=== PATIENT | male | born 1995 | race Caucasian/White ===

== ENCOUNTER 2024-04-19 19:47 | Emergency (ER) | payer SELFPAY ==
--- NOTE | 2024-04-19 19:48 | XRR_ITS ---
PROCEDURE INFORMATION: Exam: XR Chest Exam date and time: 04/19/2024 8:05 PM Age: 28 years old Clinical indication: Chest pressure; Patient HX: C/O chest pain; Additional info: Cp TECHNIQUE: Imaging protocol: Radiologic exam of the chest. Views: 1 view. COMPARISON: No relevant prior studies available. FINDINGS: Lungs: Unremarkable. No consolidation. Pleural spaces: Unremarkable. No pleural effusion. No pneumothorax. Heart/Mediastinum: Unremarkable. No cardiomegaly. Bones/joints: Unremarkable. XR/XR chest 1V portable [id number] IMPRESSION: No acute findings.
--- NOTE | 2024-04-19 19:48 | ECG_ITS ---
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 Measurements Intervals [place] Rate: 97 P: 48 MA: 154 QRS: -11 QRSD: 104 T: 55 QT: 325 QTc: 414 Interpretive Statements SINUS RHYTHM WITH SINUS ARRHYTHMIA INCOMPLETE RIGHT BUNDLE BRANCH BLOCK [90+ ms QRS DURATION, TERMINAL R IN V1/V2, 40+ ms S IN I/aVL/V4/V5/V6] POSSIBLE ANTERIOR MYOCARDIAL INFARCTION , OF INDETERMINATE AGE [30 ms Q WAVE IN V3/V4, OR R < 0.2 mV IN V4] No previous ECG available for comparison Electronically Signed On 04-21-2024 00:14:13 CDT by Naif Barlow M.D. [email or web address]
--- NOTE | 2024-04-19 20:01 | ED_ITS ---
HPI - Chest Pain 2 General: Chief Complaint: Chest Pain Stated Complaint: chest pain Time Seen by Provider: 04/19/24 19:49 Source: patient and EMS Mode of arrival: EMS Limitations: no limitations History of Present Illness: 28-year-old male who is here from skilled nursing [facility] states he has been having sharp chest pains over the last 2 days he states the pain is worse with inspiration states it is very sharp in nature he denies any cough denies any fever denies any vomiting or diarrhea. Associated symptoms: Deny abdominal pain, dyspnea, fever(s), nausea or vomiting Review of Systems 2 Const: Denies: fever(s), chills, body aches or change in appetite ENMT: Denies: throat pain or dental pain Card: Reports: chest pain Resp: Denies: dyspnea GI: Denies: abdominal pain, nausea, vomiting or diarrhea Musc: Denies: neck pain or back pain Skin/Breast: Denies: rash Neuro: Denies: headache(s) Physical Exam 2 Const: COMMON NORMALS: no acute distress, patient oriented x3 and healthy appearing HENMT: COMMON NORMALS: normocephalic and atraumatic HEAD & SCALP: n ormocephalic and atraumatic Neck/C-Spine: COMMON NORMALS: full ROM and supple Chest: COMMONS NORMALS: normal inspection of the chest and normal palpation of entire chest wall Resp: COMMON NORMALS: normal respiratory effort, No retractions, No use of accessory muscles and clear to auscultation bilaterally AUSCULTATION: clear to auscultation bilaterally Cardio: COMMON NORMALS: regular rate, regular rhythm and No murmurs present (Cardio) RATE: regular rate RHYTHM: regular rhythm Extremity: COMMON NORMALS: normal to inspection and full ROM Neuro: COMMON NORMALS: patient oriented x3, moves all extremities and no focal motor deficits Psych: COMMON NORMALS: mental status grossly normal, Normal thought process present and cooperative THOUGHT PROCESS: Normal thought process present Skin: COMMON NORMALS: no rashes or lesions noted and no wounds GENERAL SKIN EXAM: no rashes or lesions noted Course 2 Vital Signs: Vital signs: Vital Signs Temperature 98.7 F 04/19/24 20:09 Pulse Rate 84 04/19/24 20:09 Respiratory Rate 22 H 04/19/24 20:09 Blood Pressure 155/85 04/19/24 20:09 Pulse Oximetry 96 04/19/24 20:09 Oxygen Delivery Me thod Room Air 04/19/24 20:09 MDM - Chest Pain Medical Decision Making Patient presents here with chest pain is atypical in nature likely pleuritic D- dimer here is negative no signs of PE no signs of ACS no signs of dissection he stable for discharge Medical Records I reviewed the patient's medical records. Lab Data I reviewed the patient's lab results. 04/19/24 20:12 04/19/24 20:12 Laboratory Results WBC 10.41 10^3/uL (3.29-11.43) 04/19/24 20:12 RBC 5.44 10^6/uL (3.85-5.65) 04/19/24 20:12 Hgb 14.90 g/dL (11.27-16.99) 04/19/24 20:12 Hct 45.3 % (37-53) 04/19/24 20:12 MCV 83.3 fl (82-101) 04/19/24 20:12 MCH 27.4 pg (27-33) 04/19/24 20:12 MCHC 32.9 g/dL (30-55) 04/19/24 20:12 RDW 13.0 % (12.1-15.1) 04/19/24 20:12 Plt Count 225 10^3/cmm (157-399) 04/19/24 20:12 MPV 12.7 fL (7.4-10.4) H 04/19/24 20:12 Neut % (Auto) 62.4 % 04/19/24 20:12 Lymph % (Auto) 27.9 % 04/19/24 20:12 [place] % (Auto) 5.6 % 04/19/24 20:12 Eos % (Auto) 3.7 % 04/19/24 20:12 Baso % (Auto) 0.3 % 04/19/24 20:12 Neut # (Auto) 6.51 10^3/uL (1.8-7.7) 04/19/24 20:12 Lymph # (Auto) 2.9 10^3/uL (0.8-4.8) 04/19/24 20:12 [place] # (Auto) 0.6 10^3/uL (0.2-0.9) 04/19/24 20:12 Eos # (Auto) 0.4 10^3/uL (0.0-0.8) 04/19/24 20:12 Baso # (Auto) 0.0 10^3/uL (0.0-0.1) 04/19/24 20:12 Nucleated RBC % (auto) 0 % 04/19/24 20:12 Nucleated RBCs # 0.0 /100WBC 04/19/24 20:12 D-Dimer 0.38 ug/mLFEU (0-0.59) 04/19/24 20:12 Sodium 136 mmol/L (136-145) 04/19/24 20:12 Potassium 3.8 mmol/L (3.5-5.1) 04/19/24 20:12 Chloride 98 mmol/L (98-107) 04/19/24 20:12 Carbon Dioxide 28 mmol/L (22-29) 04/19/24 20:12 Anion Gap 13.8 (5-19) 04/19/24 20:12 BUN 12 mg/dL (6-20) 04/19/24 20:12 Creatinine 0.8 mg/dL (0.7-1.2) 04/19/24 20:12 GFR Calculation 116.9 mL/min (90-130) 04/19/24 20:12 Glucose 115 mg/dL (65-115) 04/19/24 20:12 Calculated Osmolality 283 mOsm/kg (285-295) L 04/19/24 20:12 Calcium 9.5 mg/dL (8.5-10.5) 04/19/24 20:12 Total Bilirubin 0.3 mg/dL (0.15-1.2) 04/19/24 20:12 AST 16 U/L (0-40) 04/19/24 20:12 ALT 18 U/L (0-41) 04/19/24 20:12 Alkaline Phosphatase 78 U/L (40-130) 04/19/24 20:12 Troponin T Baseline < 6 ng/L (0-15) 04/19/24 20:12 Total Protein 7.2 g/dL (6.6-8.7) 04/19/24 20:12 Albumin 4.7 g/dL (3.5-5.2) 04/19/24 20:12 Globulin 2.5 g/dL (1.3-4.6) 04/19/24 20:12 All radiology interpretation(s) finalized by discharge EKG Data EKG 1: I personally reviewed and interpreted this EKG as follows: EKG interpretation date: 04/19/24 EKG interpretation time: 19:53 Interpretation: nsr hr [address] elevation qrs 104 qtc 380 Discharge Plan Discharge Patient Disposition: Home Clinical Impression: Chest pain Condition: Stable Discharge Orders: Discharge ED (Routine); Ordered 04/19/24 Ordered By: Torey Dumont Discharge Diet: Advance as tolerated Discharge Activity: Resume usual activity Patient Instructions: Chest Pain (ED) Coding Level of Care Code ED Django Developer for Arpita Walker
[2024-04-19 20:06] VITALS: BMI 23.7
[2024-04-19 20:09] VITALS: BP 155/85; PULSE 84; RESP 22; TEMP 37.1; O2SAT 96
[2024-04-19] MEDS: ketorolac 30 mg/mL INJ IVP (20:18)
[2024-04-19 20:22] LABS: Basophils % 0.3 %; Eosinophils # 0.4 10^3/uL (0.0-0.8); Eosinophils % 3.7 %; Hematocrit 45.3 % (37-53); Lymphocytes # 2.9 10^3/uL (0.8-4.8); Lymphocytes % 27.9 %; Mean Corpuscular HGB Conc 32.9 g/dL (30-55); Mean Corpuscular Hemoglobin 27.4 pg (27-33); Mean Corpuscular Volume 83.3 fl (82-101); Mean Platelet Volume 12.7 fL (7.4-10.4); Monocytes # 0.6 10^3/uL (0.2-0.9); Monocytes % 5.6 %; Neutrophils # 6.51 10^3/uL (1.8-7.7); Neutrophils % 62.4 %; Nucleated Red Blood Cells % 0 %; Platelet Count 225 10^3/cmm (157-399); Red Blood Count 5.44 10^6/uL (3.85-5.65); White Blood Count 10.41 10^3/uL (3.29-11.43)
[2024-04-19 20:30] LABS: D Dimer 0.38 ug/mLFEU (0-0.59)
[2024-04-19 20:51] LABS: Troponin(5th) Baseline < 6 ng/L (0-15)
[2024-04-19 21:00] LABS: Alanine Aminotransferase 18 U/L (0-41); Albumin Level 4.7 g/dL (3.5-5.2); Alkaline Phosphatase 78 U/L (40-130); Anion Gap 13.8 (5-19); Aspartate Amino Transferase 16 U/L (0-40); Blood Urea Nitrogen 12 mg/dL (6-20); Calcium 9.5 mg/dL (8.5-10.5); Carbon Dioxide 28 mmol/L (22-29); Chloride 98 mmol/L (98-107); Globulin 2.5 g/dL (1.3-4.6); Glomerular Filtration Rate 116.9 mL/min (90-130); Glucose 115 mg/dL (65-115); Osmolality Calculated 283 mOsm/kg (285-295); Potassium 3.8 mmol/L (3.5-5.1); Sodium 136 mmol/L (136-145); Total Bilirubin 0.3 mg/dL (0.15-1.2); Total Protein 7.2 g/dL (6.6-8.7)
[2024-04-19 21:14] VITALS: BP 132/73; PULSE 87; O2SAT 99
== END 2024-04-19 21:16 | disposition home or self-care (01) ==
PROVIDERS: Emergency Provider Emergency Medicine
DX: R07.9 Chest pain, unspecified (principal)
CPT/HCPCS: 36415; 71045; 80053; 84484; 85025; 85378; 93005; 96374; 99285; J1885

== ENCOUNTER 2024-04-20 19:20 | Emergency (ER) | payer SELFPAY ==
[2024-04-20 19:22] VITALS: BP 159/109; PULSE 103; RESP 18; TEMP 36.6; O2SAT 96; BMI 27.8
[2024-04-20 20:00] LABS: Basophils % 0.3 %; Eosinophils # 0.3 10^3/uL (0.0-0.8); Hematocrit 44.6 % (37-53); Lymphocytes # 2.1 10^3/uL (0.8-4.8); Lymphocytes % 24.2 %; Mean Corpuscular HGB Conc 32.7 g/dL (30-55); Mean Corpuscular Hemoglobin 27.4 pg (27-33); Mean Corpuscular Volume 83.7 fl (82-101); Mean Platelet Volume 12.8 fL (7.4-10.4); Monocytes # 0.5 10^3/uL (0.2-0.9); Neutrophils # 5.82 10^3/uL (1.8-7.7); Neutrophils % 66.3 %; Nucleated Red Blood Cells % 0 %; Platelet Count 214 10^3/cmm (157-399); Red Blood Count 5.33 10^6/uL (3.85-5.65); Red Cell Distribution Width 12.9 % (12.1-15.1); White Blood Count 8.79 10^3/uL (3.29-11.43)
[2024-04-20] MEDS: haloperidol inj 5 mg/mL INJ 1 mL IVP (20:19)
[2024-04-20] MEDS: sodium chloride 0.9% 500 ML IV (20:19)
--- NOTE | 2024-04-20 20:19 | W.ED.GENADLT ---
HPI - General Adult General: Chief complaint: General Medical Stated complaint: SHAKING Time Seen by Provider: 04/20/24 19:23 History of Present Illness: 28-year-old incarcerated male here for the second time in 2 days. He complains of uncontrollable shaking, started sometime around his dinnertime this evening. He is awake, and able to talk. He is not had this happen before. No vomiting, no diarrhea. No fever. Related Data Allergies Allergy/AdvReac Type Severity Reaction Status Date / Time No Known Allergies Allergy Verified 04/20/24 19:30 Physical Exam Const: COMMON NORMALS: no acute distress GENERAL APPEARANCE: cooperative; not ill appearing and not frail appearing HENMT: COMMON NORMALS: normocephalic, atraumatic and Normal external nose present HEAD & SCALP: normocephalic and atraumatic FACE & SINUS: normal facial exam and face symmetric NOSE: Normal external nose present Eye: COMMON NORMALS: Equal, round and reactive pupils present and EOMs intact bilaterally PUPIL: Yes Equal, round and reactive pupils present Neck/C-Spine: GENERAL: Yes trachea midline Chest: CHEST: Yes Symmetrical chest wall rise Resp: COMMON NORMALS: normal respiratory effort, No retractions, No use of accessory muscles and clear to auscultation bilaterally AUSCULTATION: clear to auscultation bilaterally Cardio: COMMON NORMALS: regular rate and regular rhythm RATE: regular rate RHYTHM: regular rhythm GI: COMMON NORMALS: Normal to inspection, nondistended, normoactive bowel sounds present Extremity: COMMON NORMALS: no pedal edema Neuro: JOSÉ MIGUEL COMA SCALE: document GCS findings José Miguel coma scale eye opening: To sound José Miguel coma scale verbal response: Orientated José Miguel coma scale motor response: Obey commands José Miguel coma scale total score: 14 SENSORY EXAM: Yes extremities (intact) Psych: COMMON NORMALS: speech normal SPEECH: Yes normal speech Skin: COMMON NORMALS: no rashes or lesions noted GENERAL SKIN EXAM: no rashes or lesions noted Course Vital Signs: Vital signs: Vital Signs Temperature 97.9 F 04/20/24 19:22 Pulse Rate 78 04/20/24 21:03 Respiratory Rate 18 04/20/24 19:22 Blood Pressure 138/78 04/20/24 21:03 Pulse Oximetry 100 04/20/24 21:03 Oxygen Delivery Me thod Room Air 04/20/24 19:22 [facility] - General Adult Medical Decision Making Shaking is resolved after IV Haldol. He is resting comfortably. Vitals are normal. CBC BMP liver enzymes are all normal. Magnesium and phosphorus are normal as well. CK is 75. This does not appear to be seizure activity. May be stress related. He is given IV fluid. He will be allowed discharge This is in no way a seizure disorder. The patient is fully conscious and awake. He is exhibiting muscle fasciculations/spasms that are somewhat rhythmic, likely related to stress versus dehydration versus potential conversion disorder. Lab Data 04/20/24 19:54 04/20/24 19:54 Laboratory Results WBC 8.79 10^3/uL (3.29-11.43) 04/20/24 19:54 RBC 5.33 10^6/uL (3.85-5.65) 04/20/24 19:54 Hgb 14.60 g/dL (11.27-16.99) 04/20/24 19:54 Hct 44.6 % (37-53) 04/20/24 19:54 MCV 83.7 fl (82-101) 04/20/24 19:54 MCH 27.4 pg (27-33) 04/20/24 19:54 MCHC 32.7 g/dL (30-55) 04/20/24 19:54 RDW 12.9 % (12.1-15.1) 04/20/24 19:54 Plt Count 214 10^3/cmm (157-399) 04/20/24 19:54 MPV 12.8 fL (7.4-10.4) H 04/20/24 19:54 Neut % (Auto) 66.3 % 04/20/24 19:54 Lymph % (Auto) 24.2 % 04/20/24 19:54 [place] % (Auto) 6.0 % 04/20/24 19:54 Eos % (Auto) 3.0 % 04/20/24 19:54 Baso % (Auto) 0.3 % 04/20/24 19:54 Neut # (Auto) 5.82 10^3/uL (1.8-7.7) 04/20/24 19:54 Lymph # (Auto) 2.1 10^3/uL (0.8-4.8) 04/20/24 19:54 [place] # (Auto) 0.5 10^3/uL (0.2-0.9) 04/20/24 19:54 Eos # (Auto) 0.3 10^3/uL (0.0-0.8) 04/20/24 19:54 Baso # (Auto) 0.0 10^3/uL (0.0-0.1) 04/20/24 19:54 Nucleated RBC % (auto) 0 % 04/20/24 19:54 Nucleated RBCs # 0.0 /100WBC 04/20/24 19:54 Sodium 140 mmol/L (136-145) 04/20/24 19:54 Potassium 4.0 mmol/L (3.5-5.1) 04/20/24 19:54 Chloride 103 mmol/L (98-107) 04/20/24 19:54 Carbon Dioxide 28 mmol/L (22-29) 04/20/24 19:54 Anion Gap 13.0 (5-19) 04/20/24 19:54 BUN 13 mg/dL (6-20) 04/20/24 19:54 Creatinine 0.9 mg/dL (0.7-1.2) 04/20/24 19:54 GFR Calculation 102.0 mL/min (90-130) 04/20/24 19:54 Glucose 96 mg/dL (65-115) 04/20/24 19:54 Calculated Osmolality 290 mOsm/kg (285-295) 04/20/24 19:54 Calcium 9.2 mg/dL (8.5-10.5) 04/20/24 19:54 Phosphorus 3.0 mg/dL (2.5-4.5) 04/20/24 19:54 Magnesium 1.8 mg/dL (1.7-2.3) 04/20/24 19:54 Total Bilirubin 0.3 mg/dL (0.15-1.2) 04/20/24 19:54 AST 14 U/L (0-40) 04/20/24 19:54 ALT 18 U/L (0-41) 04/20/24 19:54 Alkaline Phosphatase 76 U/L (40-130) 04/20/24 19:54 Creatine Kinase 75 U/L (39-308) 04/20/24 19:54 Total Protein 7.3 g/dL (6.6-8.7) 04/20/24 19:54 Albumin 4.5 g/dL (3.5-5.2) 04/20/24 19:54 Globulin 2.8 g/dL (1.3-4.6) 04/20/24 19:54 No radiology studies performed this visit Discharge Plan Discharge Patient Disposition: Home Clinical Impression: Benign fasciculations Condition: Stable Discharge Orders: Discharge ED (Routine); Ordered 04/20/24 Ordered By: Anderson Osorio Patient Instructions: Dehydration (ED), Muscle Spasm (ED), Opioid Safety, Pain Management Activity Restrictions/Additional Instructions: Stay hydrated. Keep your breathing even, as muscle fasciculations can be caused by hyperventilation. Return for fever, mental status changes, other concerning symptoms. Coding Level of Care Code ED Oil Burner Journeyman for Arpita Walker
[2024-04-20 20:23] LABS: Alanine Aminotransferase 18 U/L (0-41); Albumin Level 4.5 g/dL (3.5-5.2); Alkaline Phosphatase 76 U/L (40-130); Aspartate Amino Transferase 14 U/L (0-40); Blood Urea Nitrogen 13 mg/dL (6-20); Calcium 9.2 mg/dL (8.5-10.5); Carbon Dioxide 28 mmol/L (22-29); Chloride 103 mmol/L (98-107); Creatine Phosphokinase 75 U/L (39-308); Creatinine Clr Calc Pharmacy 143.3219; Globulin 2.8 g/dL (1.3-4.6); Glucose 96 mg/dL (65-115); Magnesium 1.8 mg/dL (1.7-2.3); Osmolality Calculated 290 mOsm/kg (285-295); Sodium 140 mmol/L (136-145); Total Bilirubin 0.3 mg/dL (0.15-1.2); Total Protein 7.3 g/dL (6.6-8.7)
[2024-04-20 21:03] VITALS: BP 138/78; PULSE 78; O2SAT 100
== END 2024-04-20 21:04 | disposition home or self-care (01) ==
PROVIDERS: Emergency Provider Emergency Medicine
DX: R25.3 Fasciculation (principal)
CPT/HCPCS: 36415; 80053; 82550; 83735; 84100; 85025; 96361; 96374; 99284; J1630; J7040

== ENCOUNTER 2024-04-24 20:24 | Emergency (ER) | payer SELFPAY ==
[2024-04-24 20:26] VITALS: BP 138/88; PULSE 77; RESP 16; TEMP 36.7; O2SAT 95; BMI 23.7
--- NOTE | 2024-04-24 20:33 | ED_ITS ---
HPI - Dental/Oral General: Chief complaint: Dental/Oral Stated complaint: Tooth Pain Time Seen by Provider: 04/24/24 20:27 History of Present Illness: 28-year-old male care home with a broken toot h. Having some mild pain associated with this. It happened earlier. No known infection previously. No fevers. Related Data Previous Rx's Medication Instructions Recorded clindamycin HCl 300 mg capsule 300 mg PO Q8H 7 days #21 caps 04/24/24 ibuprofen 600 mg tablet 600 mg PO Q8H PRN fever or pain 04/24/24 #20 tabs Allergies Allergy/AdvReac Type Severity Reaction Status Date / Time No Known Allergies Allergy Verified 04/20/24 19:30 Review of Systems Narrative: Constitutional symptoms: Negative except as documented in HPI. Skin symptoms: Negative except as documented in HPI. Eye symptoms: Negative except as documented in HPI. ENMT symptoms: Negative except as documented in HPI. Respiratory symptoms: Negative except as documented in HPI. Cardiovascular symptoms: Negative except as documented in HPI. Gastrointestinal symptoms: Negative except as documented in HPI. Genitourinary symptoms: Negative except as documented in HPI. Musculoskeletal symptoms: Negative except as documented in HPI. Neurologic symptoms: Negative except as documented in HPI. Psychiatric symptoms: Negative except as documented in HPI. Endocrine symptoms: Negative except as documented in HPI. Physical Exam Narrative: EXAM NARRATIVE: General: Alert, no acute distress. Skin: warm and dry Head: Normocephalic Neck: Trachea midline Eye: Extraocular movements are intact. Ears, nose, mouth and throat: Oral mucosa moist chipped right posterior molar Respiratory: Respirations are non-labored Musculoskeletal: Normal ROM Neurological: Alert and oriented, No focal neurological deficit observed. Psychiatric: Cooperative, appropriate mood & affect. Course Vital Signs: Vital signs: Vital Signs Temperature 98.0 F 04/24/24 20:26 Pulse Rate 77 04/24/24 20:48 Respiratory Rate 16 04/24/24 20:48 Blood Pressure 134/88 04/24/24 20:48 Pulse Oximetry 98 04/24/24 20:48 [facility] - Dental/Oral Medical Decision Making Assessment and plan: Tooth fracture ? [place] and first dose clinda here in the emergency room - Discharged home - Discussed plan with patient. Answered any questions. - Evaluation and treatment of this problem were appropriate in the emergency setting. No radiology studies performed this visit Discharge Plan Discharge Patient Disposition: Home Clinical Impression: Fracture of tooth Condition: Stable Prescriptions: New clindamycin HCl 300 mg capsule 300 mg PO Q8H 7 Days Qty: 21 0RF ibuprofen 600 mg tablet 600 mg PO Q8H PRN (Reason: fever or pain) Qty: 20 0RF Discharge Orders: Discharge ED (Routine); Ordered 04/24/24 Ordered By: Jennyfer Stuart Patient Instructions: Opioid Safety, Pain Management Activity Restrictions/Additional Instructions: Please follow-up with a dentist as soon as possible Thank you for choosing [facility] for your healthcare needs today. Please realize this is an emergency room and that we are providing you with a medical screening exam and this may not be complete and all inclusive of all the testing and or work up that you may need to determine your ailment or severity of your illness. You have been screened and evaluated and felt safe for discharge. Health conditions do change or evolve sometimes and as such it is important that you follow up with your Primary Doctor to be re checked, 3-5 days is a general good time frame for follow up. You are always welcome to return to the ED for re assessment if your symptoms are worsening or you have new concerns Coding Level of Care Code ED Electrode Cleaner for Arpita Walker
[2024-04-24] MEDS: HYDROcodone-acetaminophen 5-325 mg Tablet 1 TAB PO (20:37)
[2024-04-24] MEDS: clindamycin 150 mg Capsule 300 MG PO (20:37)
[2024-04-24 20:48] VITALS: BP 134/88; PULSE 77; RESP 16; O2SAT 98
== END 2024-04-24 20:39 | disposition home or self-care (01) ==
PROVIDERS: Emergency Provider Emergency Medicine
DX: S02.5XXA Fracture of tooth (traumatic), initial encounter for closed fracture (principal); X58.XXXA Exposure to other specified factors, initial encounter
CPT/HCPCS: 99283

== ENCOUNTER 2024-04-26 19:41 | Emergency (ER) | payer SELFPAY ==
[2024-04-26 19:45] VITALS: BP 135/98; PULSE 83; RESP 14; TEMP 36.8; O2SAT 96; BMI 23.7
--- NOTE | 2024-04-26 19:54 | W.ED.DENTAL ---
HPI - Dental/Oral General: Chief complaint: Dental/Oral Stated complaint: MOUTH PAIN Time Seen by Provider: 04/26/24 19:43 History of Present Illness: Patient is a 28-year-old male that presents with dental pain. Patient reports right bottom molar fracture 2 days ago and the left bottom molar fractured 2 weeks ago. He has developed swelling and pain. Denies fever or chills Denies difficulty swallowing Related Data Previous Rx's Medication Instructions Recorded clindamycin HCl 300 mg capsule 300 mg PO Q8H 7 days #21 caps 04/24/24 ibuprofen 600 mg tablet 600 mg PO Q8H PRN fever or pain 04/24/24 #20 tabs amoxicillin 875 mg-potassium 1 tab PO BID 7 days #14 tabs 04/26/24 clavulanate 125 mg tablet Allergies Allergy/AdvReac Type Severity Reaction Status Date / Time No Known Allergies Allergy Verified 04/20/24 19:30 Review of Systems Narrative: Constitutional symptoms: Negative except as documented in HPI. Skin symptoms: Negative except as documented in HPI. Eye symptoms: Negative except as documented in HPI. ENMT symptoms: Negative except as documented in HPI. Respiratory symptoms: Negative except as documented in HPI. Cardiovascular symptoms: Negative except as documented in HPI. Gastrointestinal symptoms: Negative except as documented in HPI. Genitourinary symptoms: Negative except as documented in HPI. Musculoskeletal symptoms: Negative except as documented in HPI. Neurologic symptoms: Negative except as documented in HPI. Psychiatric symptoms: Negative except as documented in HPI. Endocrine symptoms: Negative except as documented in HPI. Physical Exam Narrative: EXAM NARRATIVE: General: Alert, no acute distress. Skin: warm and dry Head: Normocephalic Neck: Trachea midline Eye: Extraocular movements are intact. Ears, nose, mouth and throat: Oral mucosa moist chipped right posterior molar Respiratory: Respirations are non-labored Musculoskeletal: Normal ROM Neurological: Alert and oriented, No focal neurological deficit observed. Psychiatric: Cooperative, appropriate mood & affect. Course Vital Signs: Vital signs: Vital Signs Temperature 98.2 F 04/26/24 19:45 Pulse Rate 83 04/26/24 19:45 Respiratory Rate 14 04/26/24 19:45 Blood Pressure 135/98 04/26/24 19:45 Pulse Oximetry 96 04/26/24 19:45 Oxygen Delivery Me thod Room Air 04/26/24 19:45 MDM - Dental/Oral Medical Decision Making Arrives with dental fractures, dental infection. Started on Augmentin and provided ketorolac for pain today. Patient needs to follow-up with dental service. Return to the emergency department as needed for new concerning or worsening symptoms No radiology studies performed this visit Discharge Plan Discharge Patient Disposition: Home Clinical Impression: Fracture of tooth, Dental abscess Condition: Stable Prescriptions: New amoxicillin-pot clavulanate 875-125 mg tablet 1 tab PO BID 7 Days Qty: 14 0RF No Action clindamycin HCl 300 mg capsule 300 mg PO Q8H 7 Days Qty: 21 0RF ibuprofen 600 mg tablet 600 mg PO Q8H PRN (Reason: fever or pain) Qty: 20 0RF Discharge Orders: Discharge ED (Routine); Ordered 04/26/24 Ordered By: Pablo Novoa Discharge Diet: Advance as tolerated Discharge Activity: Resume usual activity Patient Instructions: Dental Caries (Cavities), Pain Management, Dental Abscess Activity Restrictions/Additional Instructions: Please take antibiotics as prescribed Follow-up with a dentist Coding Level of Care Code ED Motorboat Mechanic Inboard for Arpita Walker
[2024-04-26] MEDS: ketorolac 10 mg Tablet PO (19:59)
[2024-04-26] MEDS: amoxicillin-clav 875-125 mg Tablet 1 TAB PO (19:59)
[2024-04-26 20:14] VITALS: BP 134/84; PULSE 77; RESP 16; O2SAT 97
== END 2024-04-26 20:10 | disposition home or self-care (01) ==
PROVIDERS: Emergency Provider Nurse Practitioner
DX: S02.5XXA Fracture of tooth (traumatic), initial encounter for closed fracture (principal); K04.7 Periapical abscess without sinus; X58.XXXA Exposure to other specified factors, initial encounter
CPT/HCPCS: 99283

== ENCOUNTER 2024-05-01 19:42 | Emergency (ER) | payer SELFPAY ==
[2024-05-01 19:49] VITALS: BP 140/84; PULSE 78; RESP 20; TEMP 36.6; O2SAT 99; BMI 23.7
--- NOTE | 2024-05-01 19:52 | ED_ITS ---
HPI - Neck Pain/Injury General: Stated Complaint: Neck Pain Time Seen by Provider: 05/01/24 19:49 History of Present Illness: Patient says he tried to pop his neck earlier and now he has tightness in the neck muscles. No bony tenderness. No saddle numbness, no urinary retention or incontinence, no focal motor deficit, no sensory deficit. no recent fever. no cough. no shortness of breath. no chest pain. no abdominal pain. no nausea or vomiting. no dysuria. no altered mental status. no edema. Related Data Previous Rx's Medication Instructions Recorded ibuprofen 600 mg tablet 600 mg PO Q8H PRN fever or pain 04/24/24 #20 tabs amoxicillin 875 mg-potassium 1 tab PO BID 7 days #14 tabs 04/26/24 clavulanate 125 mg tablet Allergies Allergy/AdvReac Type Severity Reaction Status Date / Time No Known Allergies Allergy Verified 04/20/24 19:30 Review of Systems Narrative: Constitutional symptoms: Negative except as documented in HPI. Skin symptoms: Negative except as documented in HPI. Eye symptoms: Negative except as documented in HPI. ENMT symptoms: Negative except as documented in HPI. Respiratory symptoms: Negative except as documented in HPI. Cardiovascular symptoms: Negative except as documented in HPI. Gastrointestinal symptoms: Negative except as documented in HPI. Genitourinary symptoms: Negative except as documented in HPI. Musculoskeletal symptoms: Negative except as documented in HPI. Neurologic symptoms: Negative except as documented in HPI. Psychiatric symptoms: Negative except as documented in HPI. Endocrine symptoms: Negative except as documented in HPI. Physical Exam Narrative: EXAM NARRATIVE: General: Alert, no acute distress. Skin: warm and dry Head: Normocephalic Neck: Trachea midline, some paraspinal muscle tenderness. No bony tenderness. No step-offs. Eye: Extraocular movements are intact. Ears, nose, mouth and throat: Oral mucosa moist Respiratory: Respirations are non-labored Musculoskeletal: Normal ROM Neurological: Alert and oriented, No focal neurological deficit observed. Psychiatric: Cooperative, appropriate mood & affect. MDM - Neck Pain/Injury Medical Decision Making Assessment and plan: Neck pain ? IM Toradol and IM Norflex in the emergency room. - Discharged home - Discussed plan with patient. Answered any questions. - Evaluation and treatment of this problem were appropriate in the emergency setting. No radiology studies performed this visit Discharge Plan Discharge Patient Disposition: Home Clinical Impression: Neck pain Condition: Stable Prescriptions: No Action ibuprofen 600 mg tablet 600 mg PO Q8H PRN (Reason: fever or pain) Qty: 20 0RF amoxicillin-pot clavulanate 875-125 mg tablet 1 tab PO BID 7 Days Qty: 14 0RF Discharge Orders: Discharge ED (Routine); Ordered 05/01/24 Ordered By: Jennyfer Stuart Discharge Diet: Usual diet Discharge Activity: Increase activity as tolerated Patient Instructions: Opioid Safety, Pain Management Activity Restrictions/Additional Instructions: Thank you for choosing [facility] for your healthcare needs today. Please realize this is an emergency room and that we are providing you with a medical screening exam and this may not be complete and all inclusive of all the testing and or work up that you may need to determine your ailment or severity of your illness. You have been screened and evaluated and felt safe for discharge. Health conditions do change or evolve sometimes and as such it is important that you follow up with your Primary Doctor to be re checked, 3-5 days is a general good time frame for follow up. You are always welcome to return to the ED for re assessment if your symptoms are worsening or you have new concerns Coding Level of Care Code ED Vender for Arpita Walker
[2024-05-01] MEDS: ketorolac 60 mg/2 mL INJ IM (20:04)
[2024-05-01] MEDS: orphenadrine 30 mg/mL Inj 2 mL 60 MG IM (20:04)
[2024-05-01 20:46] VITALS: BP 143/78; PULSE 84; O2SAT 99
== END 2024-05-01 20:48 | disposition home or self-care (01) ==
PROVIDERS: Emergency Provider Emergency Medicine
DX: M54.2 Cervicalgia (principal)
CPT/HCPCS: 96372; 99284; J1885; J2360